=== PATIENT | female | born 1965 | race African-American/Black ===

== ENCOUNTER 2017-02-22 11:01 | Emergency (ER) | payer MEDICAID ==
[~2017-02-22] VITALS: Ht 152.4 cm; Wt 97.1 kg
[2017-02-22 11:51] VITALS: BP 113/82
== END 2017-02-22 12:30 | disposition home or self-care (01) ==
LOC: ER 11:01
DX: S16.1XXA Strain of muscle, fascia and tendon at neck level, initial encounter (principal); E07.9 Disorder of thyroid, unspecified; X58.XXXA Exposure to other specified factors, initial encounter; Y93.89 Activity, other specified; Y99.8 Other external cause status; Y92.89 Other specified places as the place of occurrence of the external cause; Z88.0 Allergy status to penicillin

== ENCOUNTER → 2018-05-17 | Outpatient (CLI) | payer MEDICAID ==
[~2018-05-17] MED LIST: IOHEXOL 350 MG/ML 100ML IJ ONE
[2018-05-17 15:30] VITALS: BP 150/67
[2018-05-17 15:50] VITALS: BP 136/59
== END | disposition home or self-care (01) ==
LOC: Rad HDHVI 15:21
PROVIDERS: ATTEND Internal Medicine Cardiovascular Disease
DX: E04.1 Nontoxic single thyroid nodule (principal); R91.1 Solitary pulmonary nodule
CPT/HCPCS: 71275; 82565; G0463; Q9967

== ENCOUNTER → 2018-05-19 | Outpatient (CLI) | payer MEDICAID | END | disposition home or self-care (01) | LOC: Rad HDHVI 15:17 | PROVIDERS: ATTEND Internal Medicine | DX: G47.30 Sleep apnea, unspecified (principal); R07.89 Other chest pain; R06.02 Shortness of breath; Z88.0 Allergy status to penicillin | CPT/HCPCS: 93306 ==

== ENCOUNTER → 2018-05-26 | Outpatient (CLI) | payer MEDICAID ==
[~2018-05-26] VITALS: Ht 157.5 cm; Wt 96.6 kg
== END | disposition home or self-care (01) ==
LOC: Rad HDHVI 13:23
PROVIDERS: ATTEND Internal Medicine Cardiovascular Disease
DX: R07.89 Other chest pain (principal); R06.02 Shortness of breath; E11.9 Type 2 diabetes mellitus without complications; G47.30 Sleep apnea, unspecified
CPT/HCPCS: 78452; 93017; 96374; A9500